=== PATIENT | male | born 2000 ===

== ENCOUNTER 2019-09-10 07:23 | Day surgery (SDC) | payer BC ==
[~2019-09-10 07:23] MED LIST: Acetaminophen TAB* 325 MG ONE; Acetaminophen TAB* 325 MG PO ONE; Buffered Lidocaine 1% SYRIN* 1 ML/SYRINGE INTRADERM ONE; Lactated Ringers 1000 ML Bag* 1,000 ML IV SCH
[2019-09-10] MEDS ORDERED: ceFAZolin 2 GM PREMIX in ORs 2 GM/50 ML BAG ONE (07:33)
[2019-09-10] MEDS ORDERED: fentaNYL* 50 MCG/ML 2 ML VIAL (100 MCG VIAL) ONE (09:14)
[2019-09-10] MEDS ORDERED: Midazolam* 1 MG/ML 2 ML VIAL (2 MG) ONE ×2 (09:14→09:15)
[2019-09-10] MEDS ORDERED: fentaNYL* 50 MCG/ML 5 ML VIAL (250 MCG VIAL) ONE (09:14)
[2019-09-10] MEDS ORDERED: Lidocaine 2% PF * 5 ML VIAL ONE (09:17)
[2019-09-10] MEDS ORDERED: Propofol* 500 MG/50 ML BTL ONE ×2 (09:17→10:46)
[2019-09-10] MEDS ORDERED: Bupivacaine 0.5% W/EPI SDV* 30 ML VIAL ONE (09:24)
[2019-09-10] MEDS ORDERED: diPHENhydraMINE IV* 50 MG/ML 1 ml VIAL (BENADRYL) IV PRN (10:22)
[2019-09-10] MEDS ORDERED: HYDROmorphone INJ1* 1 MG/ML SYRINGE IV PRN (10:22)
[2019-09-10] MEDS ORDERED: Ondansetron INJ* 2 MG/ML VIAL IV PRN (10:22)
[2019-09-10] MEDS ORDERED: Naloxone* 0.4 MG/ML 1 ML VIAL IV PRN (10:22)
[2019-09-10] MEDS ORDERED: Ketorolac INJ* 30 MG/ML 1 ML VIAL IV PRN (10:22)
[2019-09-10] MEDS ORDERED: oxyCODONE TAB* 5 MG TAB PO PRN (10:22)
[2019-09-10] MEDS ORDERED: Ondansetron INJ* 2 MG/ML VIAL ONE (11:45)
[2019-09-10] MEDS ORDERED: PROCHLORPERAZINE INJ 5 MG/ML 2 ML VIAL IV PRN (12:00)
[2019-09-10 13:08] VITALS: BP 114/72
--- NOTE | 2019-09-10 14:15 | OP ---
Amended report to correct patient name and account number. OPERATIVE REPORT: DATE OF OPERATION: 09/10/19 DATE OF : 89 SURGEON: Tunde Rodriguez MD SAWMILL TALLY CLERK: CARMENCITA Aguilar A physician commercial lines assistant was required for the length of the procedure for assistance with patient positioning, retraction, instrumentation, and closure. ANESTHESIOLOGIST: Dr. Rahel Owens. ANESTHESIA: Spinal anesthesia, local anesthesia with 10 cc of Marcaine. PRE-OP DIAGNOSES: 1. Left ankle lateral malleolus fracture, displaced, unstable. 2. Left ankle possible unstable syndesmotic injury. POST-OP DIAGNOSIS: Left ankle lateral malleolus fracture, displaced, unstable. OPERATIVE PROCEDURE: Open reduction and internal fixation, left ankle lateral malleolus fracture. ANTIBIOTICS: Ancef 2 g IV. IV FLUIDS: See Anesthesia note. OEOP-GX-YWGY TIME: 61 minutes. TOURNIQUET TIME: 65 minutes at 300 mmHg, left thigh. SPECIMEN: None. IMPLANTS: [employer] /3rd tubular plate, 6-holes. In that plate, I had 5 screws placed through it. Three screws were 3.5 mm cortical nonlocking, all placed proximal. One screw distally was a 4.0 mm cancellous nonlocking screw. One placed distally was a 3.5 mm locking screw. I also placed a 3.5 mm nonlocking cortical screw across the fracture using lag technique, an interfragmentary screw. COMPLICATIONS: None. ESTIMATED BLOOD LOSS: Minimal. 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 The patient smokes less than 1 pack per day of cigarettes. On x- ray, weightbearing in clinic, the patient had 5.6 mm of displacement and an increased medial clear space. We opted for surgery. Discussed risks and potential complications of surgery. Discussed possible need for placement of syndesmotic screw which I would have recommended the patient subsequently have removed. DESCRIPTION OF PROCEDURE: In preoperative holding, the patient signed a written consent. Operative extremity was marked in preoperative holding. The patient was taken back to the operating room. In the operating room, spinal anesthetic was injected. The patient was laid supine and sedated. Empire bump placed under the left hemipelvis. Bone foam. Tourniquet placed about the thigh. Left lower extremity was scrubbed and then prepped. Draped. Surgical time-out performed. Esmarch was applied and tourniquet was elevated. A curvilinear lateral skin incision was made. Dissected down to bone. Very thick nice periosteum was split. Debrided fracture site with irrigation and instruments. Reduced fracture. Placed bone clamps. Next, placed a 3.5 mm screw from distal posterior to proximal anterior. Overdrilled distally for so called lag technique fixation. This held an excellent reduction. Reduction was anatomic or within 1 mm of anatomic. I sized a plate, 6-holes. Contoured the plate. Applied the plate and placed through it a nonlocking screw distally and proximally. Brought in mini C-arm. Confirmed excellent reduction and excellent placement of hardware. Filled the plate with the exception of the fourth screw hole which was at the fracture which was left open. I placed 3 nonlocking screws proximally, all 3.5 mm. Distally, my initial screw had been a 4.0 mm cancellous nonlocking screw, but my second screw distally was a locking 3.5 mm screw. Obtained final x-rays. Performed external rotation stress test as well as Cotton test. There was no gapping of the medial clear space nor of the syndesmotic space. Therefore, no syndesmotic screw was required. Irrigation. Closure of the periosteum and deep fascia with [id number] stitches using Vicryl 2-0 suture. Closure of the subcutaneous tissue with buried simple stitches using Vicryl 3-0 suture. Closure of the skin was then performed with a running stitch using nylon 3-0 suture. Local anesthetic was injected about the incision site. Xeroform, 4x4s, ABD, sterile Webril. Nonsterile Webril and then a splint with a posterior slab and then a sugar tong slab. Wrapped with an Mohit bandage. The patient was awakened, extubated and transferred to the PACU. DISPOSITION: Percocet as needed for pain control. Aspirin for 2 weeks for DVT prophylaxis. Short course of antibiotics to prevent infection. The patient is nonweightbearing with that splint on with crutches. He will follow up 10 to 14 days postoperatively with x-rays. [id number]/[facility] #: [id number] [facility]
== END 2019-09-10 13:45 | disposition home or self-care (01) ==
LOC: OREAST 07:23
PROVIDERS: ATTEND Orthopaedic Surgery
DX: S82.62XA Displaced fracture of lateral malleolus of left fibula, initial encounter for closed fracture (principal); W01.0XXA Fall on same level from slipping, tripping and stumbling without subsequent striking against object, initial encounter; Y92.9 Unspecified place or not applicable; F17.200 Nicotine dependence, unspecified, uncomplicated
CPT/HCPCS: 76000; A9270-GY; C1713; C1776; J0690; J2250; J2405; J2704; J3010